=== PATIENT | female | born 1975 | race African-American/Black ===

== ENCOUNTER 2017-04-26 22:01 | Emergency (ER) | payer SELFPAY ==
[~2017-04-26] VITALS: Ht 160 cm; Wt 91.0 kg
[2017-04-27] MEDS ORDERED: ONDANSETRON HCL 4MG/2ML VIAL IV STA (03:51)
[2017-04-27] MEDS ORDERED: FAMOTIDINE 20MG/2ML VIAL IV STA (03:51)
[2017-04-27] MEDS ORDERED: SODIUM CHLORIDE 0.9% 1,000 ML IV ONE (03:51)
[2017-04-27] MEDS ORDERED: KETOROLAC 30MG/ML VIAL IV STA (03:51)
[2017-04-27] MEDS ORDERED: ASPIRIN 81MG TABLET PO ONE (04:00)
[2017-04-27 04:26] LABS: BASOPHILS % 0.8 % (0.0-2.0); EOSINOPHILS % 0.3 % (0.0-5.0); HEMATOCRIT. 29.7 % (36.0-48.0); HEMOGLOBIN. 9.4 g/dL (12.0-16.0); MEAN CORPUSCULAR HEMOGLOBIN 24.5 pg (28.0-32.0); MEAN CORPUSCULAR VOLUME 76.8 fL (81.0-99.0); MEAN PLATELET VOLUME 8.3 fl (7.4-10.4); MONOCYTES % 6.8 % (2.0-8.0); NEUTROPHILS % 67.1 % (40.0-76.0); PLATELET 313 x1000/uL (130-400); RED BLOOD CELL COUNT 3.86 mill/uL (4.2-5.4); RED CELL DISTRIBUTION WIDTH 18.4 % (11.6-14.6)
[2017-04-27 04:36] LABS: HCG SCREEN NEGATIVE
[2017-04-27 04:41] LABS: D-DIMER 0.39 mg/L FEU (<0.50); PARTIAL THROMBOPLASTIN TIME 23.8 sec (23.4-31.0); PROTHROMBIN TIME 10.6 sec (9.4-11.6)
[2017-04-27 04:43] LABS: CARBON DIOXIDE 29 mEq/L (21-32); CHLORIDE 103 mEq/L (98-107); ETHANOL BLOOD < 10 mg/dL; TROPONIN I < 0.02 ng/mL (0.00-0.04)
[2017-04-27 05:49] LABS: CLARITY URINE CLEAR (CLEAR); COLOR URINE YELLOW (YELLOW); GLUCOSE URINE NEGATIVE (NEGATIVE); KETONES URINE NEGATIVE (NEGATIVE); LEUKOCYTE ESTERASE URINE 1+ (NEGATIVE); NITRITE URINE NEGATIVE (NEGATIVE); OCCULT BLOOD URINE 3+ (NEGATIVE); PROTEIN URINE NEGATIVE (NEGATIVE); SPECIFIC GRAVITY URINE 1.016 (1.005-1.030)
[2017-04-27 06:24] LABS: *AMPHETAMINES SCREEN URINE NEGATIVE (NEGATIVE); *BARBITURATES SCREEN URINE NEGATIVE (NEGATIVE); *BENZODIAZEPINES SCREEN URINE NEGATIVE (NEGATIVE); *COCAINE SCREEN URINE NEGATIVE (NEGATIVE); CANNABINOID URINE SCREEN NEGATIVE (NEGATIVE); OPIATES URINE SCREEN NEGATIVE (NEGATIVE); PHENCYCLIDINE URINE SCREEN NEGATIVE (NEGATIVE)
[2017-04-27 06:45] VITALS: BP 112/59
[2017-04-27 07:13] LABS: METHADONE URINE SCREEN NEGATIVE (NEGATIVE)
== END 2017-04-27 06:42 | disposition home or self-care (01) ==
LOC: ER 22:01
DX: K80.20 Calculus of gallbladder without cholecystitis without obstruction (principal); R07.9 Chest pain, unspecified; K80.50 Calculus of bile duct without cholangitis or cholecystitis without obstruction; Z98.890 Other specified postprocedural states
CPT/HCPCS: 36415; 71010; 76705; 80053; 80305; 81001; 83605; 83690; 83880; 84484; 84703; 85025; 85379; 85610; 85730; 93005; 96361; 96374; 96375; 99285; G0482; J1885; J2405; J3490; J7030; Z7610